=== PATIENT | female | born 1940 | race Caucasian/White ===

== ENCOUNTER → 2017-03-11 | Outpatient (CLI) | payer MEDICARE, OTHER ==
[~2017-03-11] MED LIST: ACYC200C PO; ALBU0.63 NEB; BIOT25006 PO; CA C1TAB28 PO; FLUT1DIS IH; LISI-334 PO; OMEP40CA5 PO; VENTOLIN HFA18 GM INH
--- NOTE | 2017-03-11 09:41 | KCIC ---
CT MAXILLOFACIAL WO CONTRAST dated 03/11/2017 9:00 AM Indication: Chronic cough, sinus problems on the right for many years. Comparison: None Technique: Noncontrast CT imaging was performed of the maxillofacial region, multiplanar reconstruction images submitted. One or more of the following individualized dose reduction techniques were utilized for this examination: 1. Automated exposure control 2. Adjustment of the mA and/or kV according to patient size 3. Use of iterative reconstruction technique Findings: There are no air-fluid levels of the paranasal sinuses. There is very minimal mucosal thickening at the floor of the right sphenoid sinus, 1 to 2 mm in greatest thickness. There is patchy very minimal ethmoid air cell mucosal thickening. There is deviation of the nasal septum to the right. Ostiomeatal units are patent bilaterally. Mastoid air cells are aerated. Globes are symmetric in appearance. IMPRESSION: 1. Paranasal sinuses are mostly aerated, negligible right sphenoid sinus and patchy ethmoid air cell mucosal thickening. Electronically signed by: Sam Lawrence MD (03/11/2017 9:38 AM)
== END | disposition home or self-care (01) ==
LOC: KCIC CT 08:30
PROVIDERS: ATTEND Otolaryngology
DX: R05 Cough (principal)
CPT/HCPCS: 70486